=== PATIENT | female | born 1965 | race Caucasian/White ===

== ENCOUNTER → 2017-12-17 | Outpatient (CLI) | payer MEDICARE, OTHER ==
--- NOTE | 2017-12-17 09:29 | CT ---
EXAMINATION TYPE: CT chest wo con DATE OF EXAM: 12/17/2017 COMPARISON: 03/28/2017 HISTORY: SPN CT DLP: [address] of the chest was performed with lung and mediastinal window settings submitted. The la ck of contrast limits evaluation of the vascular, mediastinal and parenchymal structures including th e upper abdomen. LUNGS: Again noted is a right perihilar pulmonary nodule which measures 1.1 cm versus 1.2 cm measured previously. This nodule is nonspecific and demonstrates stability in the interval. No additional nod ules are identified with certainty. No internal calcifications evident. Within the right middle lobe there is an area of scarring and/or bronchiectasis. No pleural effusions identified. MEDIASTINUM/SHITAL: Thoracic aorta is of normal caliber with limited evaluation given lack of contrast . The heart is not enlarged. No evidence for mediastinal mass. No lymph nodes greater than 1cm. UPPER ABDOMEN: No significant abnormality is seen. OTHER: No significant other abnormality. IMPRESSION: 1. Stable right perihilar pulmonary nodule which is indeterminate. Stability over a 2 year timeframe should be documented radiographically. Follow-up study in 6 months is advised.
== END | disposition home or self-care (01) ==
LOC: RADCTMAIN 08:10
PROVIDERS: ATTEND Internal Medicine Sleep Medicine
DX: R91.1 Solitary pulmonary nodule (principal)
CPT/HCPCS: 71250

== ENCOUNTER 2020-07-27 09:14 | Day surgery (SDC) | payer MEDICARE, OTHER ==
[2020-07-25 11:53] VITALS: BMI 19.5
[~2020-07-27 09:14] MED LIST: LACTATED RINGERS 1,000 ML IV SCH
[2020-07-27 09:34] VITALS: TEMP 98
[2020-07-27] MEDS ORDERED: PROPOFOL 10 MG/ML 20 ML VIAL IV ONE (10:16)
[2020-07-27] MEDS ORDERED: LIDOCAINE 1% INJ 10MG/ML (20 ML MDV) ONE (10:16)
--- NOTE | 2020-07-27 10:19 | P.GSHP ---
History of Present Illness H&P Date: 07/27/20 Chief Complaint: GERD, weight loss This a 55-year-old female presents today for EGD. She states that she is also last weight of last several months. He's had completed GERD. She's a previous history of gastric bypass with revision of gastric bypass also. Past Medical History Past Medical History: Asthma, Pneumonia, Rheumatoid Arthritis (RA) Additional Past Medical History / Comment(s): migraines, episode of pain behind left breast 3 weeks ago, "lesions on lung", restless legs, 'slight anemia", History of Any Multi-Drug Resistant Organisms: None Reported Past Surgical History: Bariatric Surgery, Section, Hernia Repair, Hysterectomy, Joint Replacement Additional Past Surgical History / Comment(s): gastric bypass 1999, panniculectomy, EGD, rt knee replacement, reverse left shoulder surgery, matilde cataracts Past Anesthesia/Blood Transfusion Reactions: No Reported Reaction Smoking Status: Former smoker - Past Family History Mother Family Medical History: No Reported History Medications and Allergies Home Medications Medication Instructions Recorded Confirmed Type Citalopram Hydrobromide [CeleXA] 20 mg PO HS 07/25/20 07/27/20 History Dextroamphetamine/Amphetamine 30 mg PO DAILY 07/25/20 07/27/20 History [Adderall] Ibuprofen 800 mg PO Q8H PRN 07/25/20 07/27/20 History Trihexyphenidyl [Artane] 5 mg PO BID 07/25/20 07/27/20 History Ziprasidone [Geodon] 80 mg PO BID 07/25/20 07/27/20 History Allergies Allergy/AdvReac Type Severity Reaction Status Date / Time Fish Containing Products Allergy Anaphylaxis Verified 07/27/20 09:27 [Fish] iodine Allergy Anaphylaxis Verified 07/27/20 09:27 Surgical - Exam Vital Signs Temp Pulse Resp BP Pulse Ox 98 F 70 18 147/82 98 07/27/20 09:33 07/27/20 09:33 07/27/20 09:33 07/27/20 09:33 07/27/20 09:33 - General well developed, well nourished, no distress - Eyes PERRL - ENT normal pinna - Neck no masses - Respiratory normal expansion - Cardiovascular Rhythm: regular - Abdomen Abdomen: soft, non tender Assessment and Plan Assessment: GERD, weight loss, we'll perform EGD
--- NOTE | 2020-07-27 10:28 | P.OP ---
Date of Procedure: 07/27/20 Preoperative Diagnosis: GERD Weight loss Postoperative Diagnosis: Mild esophagitis. No obstruction of gastric bypass Procedure(s) Performed: EGD Anesthesia: MAC Surgeon: Kamlesh Carpio Pathology: other (Esophagus) Condition: stable Disposition: PACU Description of Procedure: The patient's placed on the endoscopy table lateral position. She received IV sedation. The gastroscope scope was placed oropharynx passed in the esophagus and stomach. Patient appears gastric bypass. The gastrojejunostomy was seen just below the GE junction. The scope was then placed into the jejunum and there is no evidence of any obstruction. Scope was withdrawn. The small gastric pouch appeared normal the distal esophagus minimal inflamed. A biopsies performed. The proximal esophagus appeared normal. Scope was withdrawn for patient.
[2020-07-27 10:35] VITALS: BP 122/81; PULSE 80; RESP 20
== END 2020-07-27 10:52 | disposition home or self-care (01) ==
LOC: ORWHC2ENDO 09:14
PROVIDERS: ATTEND Surgery
DX: K21.00 Gastro-esophageal reflux disease with esophagitis, without bleeding (principal); R63.4 Abnormal weight loss; Z98.84 Bariatric surgery status; J45.909 Unspecified asthma, uncomplicated; Z87.01 Personal history of pneumonia (recurrent); M06.9 Rheumatoid arthritis, unspecified; G43.909 Migraine, unspecified, not intractable, without status migrainosus; R91.1 Solitary pulmonary nodule; G25.81 Restless legs syndrome; Z98.891 History of uterine scar from previous surgery; Z98.890 Other specified postprocedural states; Z90.710 Acquired absence of both cervix and uterus; Z96.651 Presence of right artificial knee joint; Z87.891 Personal history of nicotine dependence; Z98.42 Cataract extraction status, left eye; Z98.41 Cataract extraction status, right eye; F31.9 Bipolar disorder, unspecified; Z97.2 Presence of dental prosthetic device (complete) (partial); Z79.899 Other long term (current) drug therapy; Z91.048 Other nonmedicinal substance allergy status; Z91.013 Allergy to seafood
CPT/HCPCS: 81025; 88305; 43239; J2001; J2704

== ENCOUNTER 2021-04-05 10:29 | Day surgery (SDC) | payer MEDICARE, OTHER ==
[2021-04-03 12:27] VITALS: BMI 18.8
[~2021-04-05 10:29] MED LIST changes: -LACTATED RINGERS 1,000 ML IV SCH; +LIDOCAINE 1% (10MG/ML) FOR IV START INTRADERMA PRN
[2021-04-05 12:15] VITALS: TEMP 98.1
[2021-04-05] MEDS: LACTATED RINGERS 1,000 ML IV SCH ×2 (12:19→12:40)
[2021-04-05] MEDS ORDERED: PROPOFOL 10 MG/ML 20 ML VIAL IV ONE (12:41)
--- NOTE | 2021-04-05 12:44 | P.GSHP ---
History of Present Illness H&P Date: 04/05/21 Chief Complaint: Anemia, screening colonoscopy This a 55-year-old female has never had a colonoscopy before. Patient has history of anemia. She presents today for screening colonoscopy and for workup of anemia. Past Medical History Past Medical History: Asthma, Pneumonia, Rheumatoid Arthritis (RA) Additional Past Medical History / Comment(s): migraines,"lesions on lung", restless legs, 'slight anemia", TREMORS History of Any Multi-Drug Resistant Organisms: None Reported Past Surgical History: Bariatric Surgery, Breast Surgery, Section, Hernia Repair, Hysterectomy, Joint Replacement, Orthopedic Surgery Additional Past Surgical History / Comment(s): gastric bypass 1999, panniculectomy, EGD, rt knee replacement, reverse left shoulder surgery, matilde cataracts, BREAST REDUCTION Past Anesthesia/Blood Transfusion Reactions: No Reported Reaction Smoking Status: Former smoker - Past Family History Mother Family Medical History: No Reported History Medications and Allergies Home Medications Medication Instructions Recorded Confirmed Type Citalopram Hydrobromide [CeleXA] 20 mg PO HS 07/25/20 04/05/21 History Dextroamphetamine/Amphetamine 30 mg PO DAILY 07/25/20 04/05/21 History [Adderall] Ibuprofen 800 mg PO Q8H PRN 07/25/20 04/05/21 History Deutetrabenazine [Austedo] 9 mg PO BID 04/03/21 04/05/21 History diphenhydrAMINE [Benadryl] 25 mg PO BID PRN 04/03/21 04/05/21 History Allergies Allergy/AdvReac Type Severity Reaction Status Date / Time Fish Containing Products Allergy Anaphylaxis Verified 04/05/21 12:09 [Fish] iodine Allergy Anaphylaxis Verified 04/05/21 12:09 Surgical - Exam Vital Signs Temp Pulse Resp BP Pulse Ox 98.1 F 70 18 128/74 98 04/05/21 12:11 04/05/21 12:11 04/05/21 12:11 04/05/21 12:11 04/05/21 12:11 - General well developed, well nourished, no distress - Eyes PERRL - ENT normal pinna - Neck no masses - Respiratory normal expansion - Cardiovascular Rhythm: regular - Abdomen Abdomen: soft, non tender Assessment and Plan Assessment: Anemia, screening colonoscopy.
--- NOTE | 2021-04-05 13:01 | P.OP ---
Date of Procedure: 04/05/21 Preoperative Diagnosis: Screening colonoscopy Postoperative Diagnosis: External hemorrhoids Normal colon Procedure(s) Performed: Colonoscopy Anesthesia: MAC Surgeon: Kamlesh Carpio Pathology: none sent Condition: stable Disposition: PACU Description of Procedure: The patient's placed on the endoscopy table in the lateral position. She received IV sedation. Digital rectal exam was performed which revealed external hemorrhoids. Flexible colonoscope was then placed patient anus passed throughout the entire colon. Colon was very tortuous. The right colon had a large amount of liquid stool which limited view of the mucosa. No obvious polyp or source of bleeding was seen. The scope was withdrawn the transverse colon and descending colon appeared normal. The sigmoid colon appeared normal. Scope was brought back the rectum and this appeared normal. Scope withdrawn for patient.
[2021-04-05 13:05] VITALS: RESP 16
[2021-04-05 13:17] VITALS: BP 126/53; PULSE 75
== END 2021-04-05 13:32 | disposition home or self-care (01) ==
LOC: ORWHC2ENDO 10:29
PROVIDERS: ATTEND Surgery
DX: D64.9 Anemia, unspecified (principal); K64.4 Residual hemorrhoidal skin tags; D50.9 Iron deficiency anemia, unspecified; M23.205 Derangement of unspecified medial meniscus due to old tear or injury, unspecified knee; J45.909 Unspecified asthma, uncomplicated; J45.30 Mild persistent asthma, uncomplicated; F98.8 Other specified behavioral and emotional disorders with onset usually occurring in childhood and adolescence; F31.9 Bipolar disorder, unspecified; J44.9 Chronic obstructive pulmonary disease, unspecified; J42 Unspecified chronic bronchitis; I25.10 Atherosclerotic heart disease of native coronary artery without angina pectoris; M50.30 Other cervical disc degeneration, unspecified cervical region; M51.36 Other intervertebral disc degeneration, lumbar region; M15.9 Polyosteoarthritis, unspecified; G43.909 Migraine, unspecified, not intractable, without status migrainosus; Z87.01 Personal history of pneumonia (recurrent); K05.6 Periodontal disease, unspecified; M54.12 Radiculopathy, cervical region; Z98.84 Bariatric surgery status; M06.9 Rheumatoid arthritis, unspecified; G25.81 Restless legs syndrome; R91.1 Solitary pulmonary nodule; R25.1 Tremor, unspecified; Z98.891 History of uterine scar from previous surgery; Z98.890 Other specified postprocedural states; Z90.710 Acquired absence of both cervix and uterus; Z96.651 Presence of right artificial knee joint; Z98.42 Cataract extraction status, left eye; Z98.41 Cataract extraction status, right eye; Z87.891 Personal history of nicotine dependence
CPT/HCPCS: 45378; J2704

== ENCOUNTER → 2021-11-08 | Outpatient (CLI) | payer MEDICARE, OTHER ==
--- NOTE | 2021-11-09 03:43 | MR ---
EXAMINATION TYPE: MR cervical spine wo con DATE OF EXAM: 11/08/2021 COMPARISON: None HISTORY: Neck and bilateral shoulder pain, headaches. Multiplanar multi echo imaging of the cervical spine with no contrast. Normal alignment. There is some narrowing of the disc spaces at C5-6 and C6-7 and C7-T1 with spurring of the endplates. Cervical spinal cord has normal signal pattern. No edema. Spinal canal measures mo re than 8 mm at C6-7 which is the narrowest point. No evidence of any significant spinal stenosis. Th e brainstem is intact. Cerebellum is intact. No compression fracture. No cervical paraspinal mass. IMPRESSION: Multilevel spondylotic changes in the mid and lower cervical spine. No fracture. Minimal posterior di sc bulging from C4 to C7. No spinal stenosis.
== END | disposition home or self-care (01) ==
LOC: RADMRIMAIN 18:34
PROVIDERS: ATTEND Orthopaedic Surgery
DX: M47.22 Other spondylosis with radiculopathy, cervical region (principal); M48.02 Spinal stenosis, cervical region
CPT/HCPCS: 72141

== ENCOUNTER → 2023-04-26 | Outpatient (CLI) | payer MEDICARE ==
--- NOTE | 2023-04-27 10:00 | MR ---
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 The patient was then given intravenous contrast and multi planar, T1 fat-saturation images wer e obtained. IV Contrast: 6 cc Gadobutrol FINDINGS: The fisher-white junctions, ventricular system, basal cisterns appear unremarkable. Diffusion-weighted imaging shows no evidence of restricted diffusion to suggest acute/subacute infarct. Intracranial ar terial flow voids are maintained. Midline structures show no abnormality. Scattered foci of high T2 s ignal intensity are seen within the periventricular white matter. The susceptibility weighted images do not reveal any evidence for micro-hemorrhage. After administration of gadolinium, no abnormal enha ncement is seen. The bone marrow signal is within normal limits. Paranasal sinuses and mastoid air cells: No significant paranasal sinus disease. Visualized orbits: Bilateral aphakia. IMPRESSION: 1. No finding to correlate with patient's right temporal pain. No evidence of intracranial mass, acut e/subacute infarct, or abnormal enhancement. 2. Nonspecific white matter changes, likely related to small vessel ischemic disease.
== END | disposition home or self-care (01) ==
LOC: RADMRIMAIN 12:08
PROVIDERS: ATTEND Family Medicine
DX: G24.01 Drug induced subacute dyskinesia (principal); R90.82 White matter disease, unspecified
CPT/HCPCS: 70553; A9585

== ENCOUNTER 2023-07-14 08:52 | Day surgery (SDC) | payer MEDICARE ==
[2023-07-10 10:56] VITALS: BMI 20.3
[2023-07-14] MEDS: LACTATED RINGERS 1,000 ML IV SCH (09:14)
[2023-07-14 09:41] VITALS: TEMP 97.5
[2023-07-14] MEDS ORDERED: LIDOCAINE 1% INJ 10MG/ML (20 ML MDV) ONE (10:30)
[2023-07-14] MEDS ORDERED: PROPOFOL 10 MG/ML 20 ML VIAL IV ONE (10:30)
[2023-07-14] MEDS: SODIUM CHLORIDE 0.9% 500 ML 500 ML IV ONE (10:49)
--- NOTE | 2023-07-14 11:04 | P.OP ---
Date of Procedure: 07/14/23 Preoperative Diagnosis: Internal and external hemorrhoids Postoperative Diagnosis: Internal and external hemorrhoids Procedure(s) Performed: Colonoscopy Anesthesia: MAC Surgeon: Kamlesh Carpio Pathology: none sent Condition: stable Disposition: PACU Description of Procedure: The patient's placed on the endoscopy table in the lateral position. She received IV sedation. Digital rectal exam was performed. There were internal and external hemorrhoids noted. The possible colonoscope was then placed pa tient anus passed throughout the entire colon. The ileocecal valve visualized. The cecum, ascending and transverse colon appeared normal. The colon was quite tortuous. Scope back the descending; a few scattered diverticula. Scope was then brought back the rectum this appeared normal. Scope withdrawn to anus and internal and external hemorrhoids are noted.
[2023-07-14 11:33] VITALS: BP 116/68; PULSE 70; RESP 16
== END 2023-07-14 11:37 | disposition home or self-care (01) ==
LOC: ORWHC2ENDO 08:52
PROVIDERS: ATTEND Surgery
DX: K56.2 Volvulus (principal); K57.30 Diverticulosis of large intestine without perforation or abscess without bleeding; K64.8 Other hemorrhoids; K64.4 Residual hemorrhoidal skin tags; J45.909 Unspecified asthma, uncomplicated; G43.909 Migraine, unspecified, not intractable, without status migrainosus; M06.9 Rheumatoid arthritis, unspecified; Z90.710 Acquired absence of both cervix and uterus; Z98.890 Other specified postprocedural states; Z91.041 Radiographic dye allergy status; Z91.013 Allergy to seafood; Z79.51 Long term (current) use of inhaled steroids; Z79.899 Other long term (current) drug therapy
CPT/HCPCS: 45378; J2001; J2704

== ENCOUNTER 2023-07-30 13:37 | Day surgery (SDC) | payer MEDICARE ==
[2023-07-25 14:14] VITALS: BMI 21.1
[~2023-07-30 13:37] MED LIST changes: +HYDROmorphone 0.5 MG/0.5 ML SYRINGE IVP PRN; -LIDOCAINE 1% (10MG/ML) FOR IV START INTRADERMA PRN; +Pre Op ABX Message 1 EACH MISC MISCELLANE ONE
[2023-07-30] MEDS: LACTATED RINGERS 1,000 ML IV SCH (13:57)
[2023-07-30] MEDS: MIDAZOLAM 2 MG/2 ML VIAL IVP ONE (14:11)
[2023-07-30] MEDS: ONDANSETRON 4 MG/2 ML VIAL IVP ONE (14:19)
[2023-07-30] MEDS: DEXAMETHASONE SOD PHOSPHATE 4 MG/ML 1 ML VIAL IV ONE (14:19)
[2023-07-30 14:39] VITALS: RESP 16
[2023-07-30] MEDS ORDERED: ACETAMINOPHEN IV (For NPO) 1,000 MG/100 ML VIAL ONE (15:47)
[2023-07-30] MEDS ORDERED: LIDOCAINE 1% INJ 10MG/ML (20 ML MDV) ONE (15:47)
[2023-07-30] MEDS ORDERED: PROPOFOL 10 MG/ML 20 ML VIAL IV ONE (15:47)
[2023-07-30] MEDS ORDERED: MIDAZOLAM 2 MG/2 ML VIAL ONE (15:47)
[2023-07-30] MEDS ORDERED: SUCCINYLCHOLINE CHLORIDE 200 MG/10 ML VIAL IV ONE (15:47)
[2023-07-30] MEDS ORDERED: KETOROLAC 15 MG/ML 1 ML VIAL ONE (15:47)
[2023-07-30] MEDS ORDERED: ePHEDrine 50 MG/ML 1 ML VIAL ONE (15:47)
[2023-07-30] MEDS ORDERED: fentaNYL (PF) 50 MCG/ML 2 ML AMP ONE (15:47)
[2023-07-30] MEDS ORDERED: KETAMINE HCL IN 0.9 % NACL 50 MG/5 ML SYRINGE ONE (15:47)
[2023-07-30] MEDS: SODIUM CHLORIDE 0.9% 50 ML with ceFAZolin 2 GM IV ONE (15:49)
[2023-07-30] MEDS: BUPIVACAIN-EPI 0.5%-1:200,000 30 ML VIAL SQ ONE (16:15)
[2023-07-30] MEDS: GELATIN SPONGE,ABSORB (LARGE) 1 EACH SPONGE TOPICAL ONE (16:20)
--- NOTE | 2023-07-30 16:28 | P.OP ---
Date of Procedure: 07/30/23 Preoperative Diagnosis: internal and external hemorrhoids Postoperative Diagnosis: internal and external hemorrhoids Procedure(s) Performed: internal and external hemorrhoidectomy Anesthesia: ELIO Surgeon: Kamlesh Carpio Estimated Blood Loss (ml): 5 Pathology: other (internal and external hemorrhoids) Condition: stable Disposition: PACU Description of Procedure: the patient's placed on the operative table in the prone position after receiving general anesthesia. Her anus was prepped and draped usual sterile fashion. The patient internal and external hemorrhoids. The anal retractors placed anus. And then the left lateral hemorrhoidal column was grasped with a pair of Allis clamps and then using the Harmonic scissors the hemorrhoidectomy is performed. Next the right anterior and posterior hemorrhoidal columns were dissected and fashion. He was easily achieved. The instruments anesthetized 1% local Xylocaine. A piece of Gelfoam placed anus. Patient top she will patient was sent to recovery room in stable condition.
[2023-07-30 16:42] VITALS: TEMP 96.8
[2023-07-30 17:19] VITALS: BP 95/59; PULSE 84
== END 2023-07-30 17:38 | disposition home or self-care (01) ==
LOC: OR 13:37
PROVIDERS: ATTEND Surgery
DX: K64.4 Residual hemorrhoidal skin tags (principal); K64.8 Other hemorrhoids; I10 Essential (primary) hypertension; J45.909 Unspecified asthma, uncomplicated; F31.9 Bipolar disorder, unspecified; F41.9 Anxiety disorder, unspecified; M06.9 Rheumatoid arthritis, unspecified; G25.81 Restless legs syndrome; G43.909 Migraine, unspecified, not intractable, without status migrainosus; G24.01 Drug induced subacute dyskinesia; Z79.1 Long term (current) use of non-steroidal anti-inflammatories (NSAID); Z79.899 Other long term (current) drug therapy; Z79.51 Long term (current) use of inhaled steroids; Z91.013 Allergy to seafood; Z88.8 Allergy status to other drugs, medicaments and biological substances
CPT/HCPCS: 88304; 46260; J2250; J0330; J1100; J0690; J2405; J2001; J3010; J0131; J1885; J2704

== ENCOUNTER → 2024-01-24 | Outpatient (CLI) | payer MEDICARE ==
--- NOTE | 2024-01-30 08:33 | MR ---
EXAMINATION TYPE: MR right tibia and fibula without IV contrast DATE OF EXAM: 01/24/2024 COMPARISON: None HISTORY: Proximal/lateral right tibia pain Standard multiplanar, multisequence MRI departmental protocol Multiplanar, multisequence images of the right tibia and fibula were acquired without contrast. FINDINGS: Subacute appearing oblique fracture of the proximal right fibular metadiaphysis with surrounding scle rosis/callus and bone marrow edema. Moderate surrounding soft tissue/intramuscular edema is also pres ent. Bone marrow signal is otherwise within normal limits. Right knee prosthesis in place. Degenerati ve changes of the left knee and both ankles. No significant joint effusion or focal fluid collections . Visualized tendons are intact. Musculature is symmetric. IMPRESSION: Subacute fracture of the proximal right fibular metadiaphysis. Recommend radiographic correlation. [facility], , 01/29/2024 8:43 AM
== END | disposition home or self-care (01) ==
LOC: RADMRIMAIN 07:26
PROVIDERS: ATTEND Orthopaedic Surgery
DX: S82.831A Other fracture of upper and lower end of right fibula, initial encounter for closed fracture

== ENCOUNTER → 2024-07-02 | Outpatient (CLI) | payer MEDICARE ==
--- NOTE | 2024-07-02 14:15 | XR ---
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 COMPARISON: Chest CT December 17, 2017 FINDINGS: There is some chronic parenchymal changes bilaterally without suspicious focal air space o pacity, pleural effusion, or pneumothorax seen. The cardiac silhouette size is within normal limits. Surgical change left shoulder is partially imaged. IMPRESSION: No acute pulmonary infiltrate. [facility], , 07/02/2024 2:13 PM
== END | disposition home or self-care (01) ==
LOC: RADXRMAIN 13:51
PROVIDERS: ATTEND Internal Medicine Sleep Medicine
DX: P23.9 Congenital pneumonia, unspecified (principal)
CPT/HCPCS: 71046

== ENCOUNTER → 2024-07-29 | Outpatient (CLI) | payer MEDICARE ==
--- NOTE | 2024-07-29 11:48 | CT ---
EXAMINATION TYPE: CT chest wo con DATE OF EXAM: 07/29/2024 COMPARISON: Chest x-ray July 02, 2024. Chest CT December 17, 2017 CLINICAL INDICATION: Female, 59 years old with history of R05.4 HYPERVENTILATION, THROAT PAIN X 1 YEA R, CHEST PAIN SINCE 05/2024 TECHNIQUE: CT scan of the thorax is performed without IV contrast. CT DLP: 302 mGycm. Automated Exposure Control for Dose Reduction was Utilized. FINDINGS: LUNGS: Mild underlying emphysematous change is redemonstrated. There is new mild to moderate bibasila r linear scarring and/or atelectasis. There are additional multifocal areas of groundglass opacity in the mid lungs bilaterally with involvement of both upper lobes. There is focal consolidation in the periphery of the right middle lobe axial image 36. No pleural effusion or pneumothorax seen bilateral ly. HEART: Size within normal limits. No significant coronary artery calcifications. MEDIASTINUM: Lack of IV contrast is noted to limit evaluation for mediastinal and especially hilar ad enopathy. There is prominent 11 x 8 mm lymph node in the anterior superior mediastinum near the 3 gre at vessels axial image 15 redemonstrated. No pericardial effusion is seen. OTHER: Surgical change of left shoulder is partially imaged. There is scoliosis with multilevel spurr ing and disc space narrowing in the thoracic spine. IMPRESSION: Mild underlying emphysematous change with bilateral multifocal areas of groundglass opaci ty could reflect acute infectious process in the appropriate clinical setting. Correlate clinically. Other etiologies not excluded. Consider pulmonology referral to further evaluate. [facility], , 07/29/2024 11:46 AM
== END | disposition home or self-care (01) ==
LOC: RADCTMAIN 07-22 12:57
PROVIDERS: ATTEND Family Medicine
DX: R06.4 Hyperventilation (principal); J43.9 Emphysema, unspecified
CPT/HCPCS: 71250

== ENCOUNTER → 2024-08-13 | Outpatient (CLI) | payer MEDICARE ==
--- NOTE | 2024-08-16 12:25 | MM ---
Reason for Exam: Screening (asymptomatic). Last mammogram was performed 2 year(s) and 9 month(s) ago. Patient History: Menarche at age 13. First Full-Term at age 20. Hysterectomy at age 30. Postmenopausal. Estrogen, from age 30 until age 50. 1995, Bilateral Reduction. Risk Values: Sury 5 year model risk: 1.2%. NCI Lifetime model risk: 6.7%. Prior Study Comparison: 11/12/2021 Bilateral Screening Mammogram, [facility]. Tissue Density: The breasts are heterogeneously dense, which may obscure small masses. Findings: A few tiny benign-appearing round calcifications bilaterally are redemonstrated. There is no suspicious group of microcalcifications or new suspicious mass in either breast. Overall Assessment: Benign, BI-RAD 2 Management: Screening Mammogram of both breasts in 1 year. . Patient should continue monthly self-breast exams. A clinical breast exam by your physician is recommended on an annual basis. This exam should not preclude additional follow-up of suspicious palpable abnormalities. Note on Sury scores and lifetime risk: 1. A Sury score greater than 3% is considered moderate risk. If this is the case, consider specialist referral to assess eligibility for a risk reducing agent. 2. If overall lifetime risk for the development of breast cancer is 20% or higher, the patient may qualify for future screening with alternating mammogram and breast MRI. [facility], , 08/16/2024 12:21 PM. Electronically signed and approved by: Agapito Keith M.D.
== END | disposition home or self-care (01) ==
LOC: RADMAMWWP 08:45
PROVIDERS: ATTEND Obstetrics & Gynecology
DX: Z12.31 Encounter for screening mammogram for malignant neoplasm of breast (principal); R92.333 Mammographic heterogeneous density, bilateral breasts; Z78.0 Asymptomatic menopausal state
CPT/HCPCS: 77063; 77067

== ENCOUNTER → 2024-10-18 | Outpatient (CLI) | payer MEDICARE ==
[2024-10-18 15:26] LABS: Basophils # (A) 0.06 X 10*3/uL (0.00-0.10); Eosinophils # (A) 0.33 X 10*3/uL (0.04-0.35); Eosinophils % (A) 5.3 %; HCT 44.3 % (37.2-46.3); Lymphocytes # (A) 0.98 X 10*3/uL (0.90-5.00); Lymphocytes % (A) 15.7 %; MCH 29.9 pg (27.0-32.0); MCHC 31.6 g/dL (32.0-37.0); MCV 94.5 FL (80.0-97.0); Mean Platelet Volume 10.4 FL (9.5-12.2); Monocytes % (A) 9.6 %; NRBC Per 100 WBC 0 X 10*3/uL (0.00-0.01); Neutrophils # (A) 4.28 X 10*3/uL (1.80-7.70); Neutrophils % (A) 68.2 %; Platelet Count 224 X 10*3/uL (140-440); RBC 4.69 X 10*6/uL (4.10-5.20); RDW 13.1 % (11.5-14.5); WBC 6.26 X 10*3/uL (4.50-10.00)
[2024-10-18 15:49] LABS: C Reactive Protein <0.30 mg/dL (0.00-0.80); Rheumatoid Factor, Qnt <15 IU/mL (0-15)
[2024-10-18 16:03] LABS: Erythrocyte Sedimentation Rate 5 mm/Hr (0-30)
[2024-10-19 09:13] LABS: HLA B27 NEGATIVE
== END | disposition home or self-care (01) ==
LOC: LABWHC1 09:25
PROVIDERS: ATTEND Student in an Organized Health Care Education/Training Program
DX: M48.02 Spinal stenosis, cervical region (principal); M54.12 Radiculopathy, cervical region; M06.4 Inflammatory polyarthropathy
CPT/HCPCS: 36415; 85025; 85652; 86038; 86140; 86431; 86812

== ENCOUNTER → 2024-11-05 | Outpatient (CLI) | payer MEDICARE ==
--- NOTE | 2024-11-05 13:06 | MR ---
EXAMINATION TYPE: MR thoracic spine wo con DATE OF EXAM: 11/05/2024 12:26 PM COMPARISON: 07/29/2024. CLINICAL INDICATION: Female, 59 years old with history of M43.14 spondylosis; PHH, mid back pain TECHNIQUE: Multi planar, multi sequence imaging was performed utilizing: T1-weighted, short-tau inver lo recovery and T2-weighted of the thoracic spine. IV Contrast: mL (None, if empty) FINDINGS: Alignment: Alignment is within normal limits. Vertebral bodies have preserved heights. Spinal cord: Spinal cord is within normal limits for signal. Discs: Multilevel disc osteophyte complexes, osteophytes, facet joint arthropathy present. Some poste rior osteophytes which are thought to impress upon the spinal cord slightly at multiple levels no abn ormal edema within the spinal cord. Example includes central possible protrusion at T10-T11 T7-T8, T6 -T7. Intervertebral disc signal is maintained. No evidence of significant spinal canal or neural fora kimberly stenosis. Osseous structures: No abnormal bony edema on inversion recovery sequences. Multilevel osteophyte for mation and facet joint arthropathy. Scattered disc space narrowing. IMPRESSION: Moderate to severe degeneration changes throughout the spine with multilevel osteophytes and/or small disc protrusions which mildly impress upon the spinal cord. No evidence for high-grade spinal canal or neural foraminal stenosis. [facility], , 11/05/2024 1:04 PM
== END | disposition home or self-care (01) ==
LOC: RADMRIMAIN 11:40
PROVIDERS: ATTEND Student in an Organized Health Care Education/Training Program
DX: M51.34 Other intervertebral disc degeneration, thoracic region (principal); M43.14 Spondylolisthesis, thoracic region
CPT/HCPCS: 72146